=== PATIENT | female | born 1990 | race Caucasian/White ===

== ENCOUNTER 2018-01-14 09:40 | Emergency (ER) | payer SELFPAY ==
[~2018-01-14] VITALS: Ht 157.5 cm; Wt 53.1 kg
--- NOTE | 2018-01-14 10:15 | Diagnostic Imaging Report ---
PROCEDURE:FOOT RIGHT COMPLETE TECHNIQUE:AP, lateral and oblique views right foot INDICATION:Rolled right foot. Pain at lateral side. COMPARISON:None. FINDINGS: The right foot and imaged regional skeleton are intact in anatomic alignment. Regional soft tissues are normal. No foreign bodies. CONCLUSION: No acute abnormality of the right foot. Dictated by: Dale Bhandari M.D. on 01/14/2018 at 10:17 Electronically approved by: Dale Bhandari M.D. on 01/14/2018 at 10:17
== END 2018-01-14 11:03 | disposition home or self-care (01) ==
LOC: ER 09:40
DX: S96.911A Strain of unspecified muscle and tendon at ankle and foot level, right foot, initial encounter (principal); X50.1XXA Overexertion from prolonged static or awkward postures, initial encounter; Y92.008 Other place in unspecified non-institutional (private) residence as the place of occurrence of the external cause; F41.9 Anxiety disorder, unspecified
CPT/HCPCS: 99283

== ENCOUNTER 2018-05-14 14:29 | Emergency (ER) | payer OTHER ==
[~2018-05-14] VITALS: Ht 157.5 cm; Wt 53.1 kg
[2018-05-14 15:40] LABS: BASOPHILS % 0.2 % (0.0-1.0); EOSINOPHILS # (AUTO) 0.1 (0.0-0.4); EOSINOPHILS % 1.9 % (0.0-6.0); HEMATOCRIT 33.3 % (34.2-44.1); HEMOGLOBIN 11.4 g/dL (12.0-16.0); LYMPHOCYTES # (AUTO) 1.6 (1.0-3.2); LYMPHOCYTES % 24.8 % (18.0-39.1); MEAN CORPUSCULAR HEMOGLOBIN 31.3 pg (28-32); MEAN CORPUSCULAR HGB CONC 34.2 g/dL (31-35); MEAN CORPUSCULAR VOLUME 91.5 fL (81-99); MONOCYTES # (AUTO) 0.5 (0.2-0.8); MONOCYTES % 8.1 % (4.4-11.3); NEUTROPHILS # (AUTO) 4.1 (2.1-6.9); NEUTROPHILS % 64.7 % (38.7-80.0); PLATELET COUNT 199 x10e3/uL (140-360); RED BLOOD COUNT 3.64 x10e6/uL (3.6-5.1)
[2018-05-14 15:56] LABS: ANION GAP 14.5 mmol/L (8-16); BLOOD UREA NITROGEN 5 mg/dL (7-26); BUN/CREATININE RATIO 7 (6-25); CALCIUM 9.9 mg/dL (8.4-10.2); CARBON DIOXIDE 22 mmol/L (22-29); CHLORIDE 106 mmol/L (98-107); CREATININE, SERUM 0.68 mg/dL (0.57-1.11); EST GLOMERULAR FILTRATION RATE > 60 ML/MIN (60-); GLUCOSE 92 mg/dL (74-118); POTASSIUM 3.5 mmol/L (3.5-5.1); SODIUM 139 mmol/L (136-145)
[2018-05-14 16:04] LABS: CLARITY,URINE CLEAR (CLEAR); COLOR,URINE YELLOW (YELLOW); KETONES,URINE NEGATIVE (NEGATIVE); LEUKOCYTE ESTERASE ,URINE NEGATIVE (NEGATIVE); NITRITE,URINE NEGATIVE (NEGATIVE); PROTEIN,URINE DIPSTICK NEGATIVE (NEGATIVE); URINE UROBILINOGEN 0.2 mg/dL (0.2 - 1)
[2018-05-14 16:05] LABS: BILIRUBIN,URINE NEGATIVE (NEGATIVE)
[2018-05-14 16:06] LABS: BACTERIA,URINE MODERATE /HPF; EPITHELIAL CELLS,URINE MANY /LPF; TRANSITIONAL EPI CELLS,URINE MODERATE
--- NOTE | 2018-05-14 17:27 | Diagnostic Imaging Report ---
EXAM: Obstetric Pelvic Ultrasound INDICATION: \S\ABD PAIN- 12 WEEKS COMPARISON: None TECHNIQUE: Transvaginal evaluation of the pelvis was performed in the transverse and longitudinal planes. CLINICAL HISTORY: 27 year old G5 A4; last menstrual period: Not obtained FINDINGS: Uterus: Orientation: Normal Size: 6.5 x 6.6 x 9.3 cm, gravid Mass: None Cervix: Normal Gestational Sac: Location: Intrauterine Average sac diameter: 5.6 cm Estimated sonographic GA: 12 weeks, 1 day Appearance: Normal in contour Subchorionic hemorrhage: None Yolk sac: Not visualized Embryo/Fetus: Lozano rump length: 5.5 cm Estimated sonographic GA: 12 weeks, 1 day Cardiac activity: 167 bpm Right ovary Size: 3.0 x 1.4 x 3.1 cm Mass/Cyst: None Left ovary Size: 2.6 x 1.9 x 2.8 cm Mass/Cyst: None Cul-de-sac: No free fluid IMPRESSION: Viable intrauterine with estimated age of 12 weeks, 1 day by CRL and documented heart rate of 167 BPM. classification: Viable: can potentially result in a liveborn baby Visualized embryo with FHT Nonviable: Findings diagnostic of failure Ectopic CRL >= 7 mm and no FHT MSD >= 25 mm and no embryo No FHT >= 2 weeks after US showed GS w/o YS No FHT >= 11 days after US showed GS w/ YS Intrauterine of uncertain viability: Intrauterine GS with no FHT and no definite findings of failure of unknown location: Positive urine or serum test and no IUP or ectopic on US ?@ Diagnostic Criteria for Nonviable Early in the First Trimester N Engl J Med 2013;369:1443-51. DOI: [id number] Signed by: Dr. Gerardo Berger M.D. on 05/14/2018 5:23 PM
--- NOTE | 2018-05-14 17:28 | Diagnostic Imaging Report ---
EXAM: Complete Abdominal Ultrasound INDICATION: \S\ABD PAIN- 12 WEEKS COMPARISON: None. TECHNIQUE: Transverse and longitudinal images of the upper abdomen were obtained. FINDINGS: Liver: Size: 12.3 cm in the right midclavicular line, normal Appearance: Normal echogenicity, smooth contour Mass: No focal masses Spleen: Size: 9.5 cm in length, normal Echogenicity: Normal Mass: No focal masses Gallbladder: Stones/Sludge: 0.4 x 0.3 x 0.3 cm echogenic, nonshadowing, nonmobile focus in the gallbladder wall at the body. No echogenic mobile stones. Wall: 0.2 cm Appearance: No wall thickening, pericholecystic fluid or hydrops. Sonographic Dickey's Sign: Negative Bile Ducts: Intrahepatic Ducts: No dilatation Extrahepatic Ducts: Common bile duct measures 0.3 cm, no dilatation Pancreas: Visualized portions of the neck and proximal body are unremarkable. Kidneys: Length: Right 9.8 cm Left 10.1 cm Echogenicity: Normal Collecting System: No hydronephrosis Stone: None Cyst/Mass: None Vessels: Aorta: Visualized portions are normal Inferior Vena Cava: Visualized portions are normal Main Portal Vein: 1.0 cm, normal size with hepatopetal flow. Free Fluid: No ascites or pleural effusion IMPRESSION: 1. 0.4 cm gallbladder polyp. No further follow-up is indicated given its small size. No sonographic evidence of cholelithiasis or cholecystitis. 2. Otherwise unremarkable exam. Signed by: Dr. Gerardo Berger M.D. on 05/14/2018 5:25 PM
== END 2018-05-14 18:22 | disposition home or self-care (01) ==
LOC: ER 14:29
DX: O26.91 Pregnancy related conditions, unspecified, first trimester (principal); R10.84 Generalized abdominal pain
CPT/HCPCS: 36415; 76700; 76817; 80048; 81001; 81025; 84702; 85025; 86900; 99284